=== PATIENT | female | born 1940 ===

== ENCOUNTER 2019-10-30 06:00 | Emergency (ER) | payer MEDICARE ==
--- NOTE | 2019-10-30 07:23 | ED ---
Head Injury - HPI Summary HPI Summary: This patient is a 79-year-old female with no past significant medical history presenting to the ED with a head injury. Patient states when she was getting out of bed this morning, she fell and hit the right side of her head. She denies any headache. Patient is not on blood thinners. She denies any symptoms. Denies LOC. States she feels otherwise well. She denies any dizziness or lightheadedness prior to the fall. She also states she did not trip and she recalls the entire event. She was able to stand herself up. She told staff who called EMS to transport her here for laceration repair. There is a laceration which is irregular in shape approximately 2 cm above the right eyebrow. Minimal blood loss. Patient is alert and oriented to person place and time. - History Of Current Complaint Chief Complaint: EDFall Stated Complaint: FALL PER PT Time Seen by Provider: 10/30/19 06:32 Hx Obtained From: Patient Mechanism Of Injury: Blunt Trauma Onset/Duration: Started Hours Ago Onset of Pain: Minutes Severity Currently: None Pain Intensity: 0 Pain Scale Used: 0-10 Numeric - Allergies/Home Medications Allergies/Adverse Reactions: Allergies Allergy/AdvReac Type Severity Reaction Status Date / Time Penicillins Allergy Unknown Verified 10/30/19 06:12 Reaction Details Tetracyclines Allergy Unknown Verified 10/30/19 06:12 Reaction Details Home Medications: Home Medications Acetaminophen [Pain Relief] 1,000 mg PO Q8HR PRN 10/30/19 [History Confirmed ] Fluticasone Propionate [[place] Respiclick] 50 mcg BOTH NARES DAILY 10/30/19 [ History Confirmed 10/30/19] Loperamide HCl [Imodium A-D] 2 mg PO DAILY 10/30/19 [History Confirmed 10/30/19] Oxybutynin Chloride [Oxybutynin Chloride ER] 10 mg PO DAILY 10/30/19 [History Confirmed 10/30/19] amLODIPine TAB* [Norvasc 5 mg TAB*] 10 mg PO DAILY 10/30/19 [History Confirmed 10/30/19] PMH/Surg Hx/FS Hx/Imm Hx Previously Healthy: Yes - Immunization History Hx Pertussis Vaccination: No Immunizations Up to Date: Yes Infectious Disease History: No Infectious Disease History: Denies: Traveled Outside the [place] in Last 30 Days - Social History Occupation: Unemployed Lives: [facility] Alcohol Use: None Hx Substance Use: No Substance Use Type: Reports: None Hx Tobacco Use: No Smoking Status (MU): Never Smoked Tobacco Review of Systems Negative: Fever, Chills, Fatigue, Skin Diaphoresis Negative: Palpitations, Chest Pain Negative: Shortness Of Breath, Cough Positive: Other - laceration 2cm above R eyebrow. Negative: Rash, Bruising Neurological/Mental Status: Negative Negative: Headache, Weakness, Paresthesia, Numbness, Syncope All Other Systems Reviewed And Are Negative: Yes Physical Exam Triage Information Reviewed: Yes Vital Signs On Initial Exam: Initial Vitals Temp Pulse Resp BP Pulse Ox 96.4 F 56 14 166/79 98 10/30/19 06:05 10/30/19 06:05 10/30/19 06:05 10/30/19 06:05 10/30/19 06:05 Vital Signs Reviewed: Yes Appearance: Positive: Well-Appearing, Signs of Trauma Skin: Positive: Warm, Skin Color Reflects Adequate Perfusion, Other - laceration 2cm irregular above R eyebrow, minimal blood loss Head/Face: Positive: Normal Head/Face Inspection Eyes: Positive: EOMI, ZAHRA, Conjunctiva Clear Neck: Positive: Supple, No Lymphadenopathy Respiratory/Lung Sounds: Positive: Clear to Auscultation, Breath Sounds Present Cardiovascular: Positive: RRR, Pulses are Symmetrical in both Upper and Lower Extremities Musculoskeletal: Positive: Normal, Strength/ROM Intact Neurological: Positive: Speech Normal Psychiatric: Positive: Normal, Affect/Mood Appropriate AVPU Assessment: Alert Procedures - Sedation Patient Received Moderate/Deep Sedation with Procedure: No - Laceration/Wound Repair 1 Location: face Description: Irregular Anesthesia: Local, 1.0% Length, Depth and Shape: 2cm, irregular, superifical Betadine Prep?: No Irrigated w/ Saline (ccs): 60 Laceration/Wound Explored: clean Closure: Single Layer Suture Type: Prolene Number of Sutures: 6 Layer Closure?: No Sterile Dressing Applied?: No Diagnostics - Vital Signs Vital Signs Temp Pulse Resp BP Pulse Ox 10/30/19 06:24 59 97 10/30/19 06:06 56 166/79 97 10/30/19 06:05 96.4 F 56 14 166/79 98 - Laboratory Lab Statement: Any lab studies that have been ordered have been reviewed, and results considered in the medical decision making process. Head Injury Course/Dx Course Of Treatment: Laceration repair above the right eyebrow. See procedure note. Which has no acute abnormalities. Patient is alert and oriented to person, place and time. No evidence of dementia. Patient states she is otherwise healthy, takes no medications. Denies any blood thinners. Lungs CTA. RRR. Patient appears otherwise stable, no other bruises or signs of trauma noted. PT discharged home in good condition. Suture removal in 5 days. - Diagnoses Differential Diagnosis/HQI/PQRI: Contusion, Other - laceration Provider Diagnoses: Laceration, Head injury, Fall - Critical Care Time Critical Care Statement: Critical care time is provided exclusive of any time spent performing procedures. Discharge ED - Sign-Out/Discharge Documenting (check all that apply): Patient Departure - Discharge Plan Condition: Good Disposition: HOME Patient Education Materials: Care For Your Stitches (ED) Referrals: No Primary Care Phys,NOPCP [Primary Care Provider] - Additional Instructions: Suture removal in 5 days May remove bandage later today - Billing Disposition and Condition Condition: GOOD Disposition: Home
[2019-10-30 09:25] VITALS: BP 124/106
== END 2019-10-30 09:31 | disposition home or self-care (01) ==
LOC: ED 06:00
DX: S09.90XA Unspecified injury of head, initial encounter (principal); S01.111A Laceration without foreign body of right eyelid and periocular area, initial encounter; W06.XXXA Fall from bed, initial encounter; Y92.9 Unspecified place or not applicable; Z88.0 Allergy status to penicillin; Z88.8 Allergy status to other drugs, medicaments and biological substances; Z79.899 Other long term (current) drug therapy
CPT/HCPCS: 12011; 70450; 99283

== ENCOUNTER 2019-12-20 20:09 | Inpatient (IN) ==
[2019-12-20] MEDS ORDERED: Ondansetron 4 mg VIAL 2 MG/ML 2 ml VIAL IV PRN (22:34)
[2019-12-20 22:48] LABS: ABS Lymphocytes 0.8 10^3/ul (1.0-4.8); ABS Monocytes 0.5 10^3/ul (0-0.8); Hematocrit 39 % (35-47); Hemoglobin 13.5 g/dL (12.0-16.0); Lymphocyte % 13.8 %; Mean Corpuscular HGB Conc 35 g/dL (31-36); Mean Corpuscular Hemoglobin 35 pg (27-31); Mean Corpuscular Volume 101 fL (80-97); Mean Platelet Volume 7.3 fL (7.4-10.4); Platelet Count 160 10^3/uL (150-450); Red Blood Count 3.82 10^6 /uL (3.70-4.87); Red Cell Distribution Width 12 % (10-15); White Blood Count 5.8 10^3/uL (3.5-10.8)
[2019-12-20 23:05] LABS: EGFR African American 112.4 (>60); EGFR Non-African American 92.9 (>60); Potassium 4.5 mmol/L (3.5-5.0)
[2019-12-21] MEDS: Heparin 5000 UNITS/ML VIAL(*) 1 ml vial SUBCUT SCH ×2 (06:02→13:43)
[2019-12-21] MEDS ORDERED: Lactated Ringers 500 ml BAG 500 ML IV SCH (10:00)
[2019-12-21] MEDS ORDERED: Morphine PF AMP (0.5MG/ML) 5 MG/10 ML AMP ONE (13:23)
[2019-12-21] MEDS ORDERED: Lidocaine 2% PF 5 ML VIAL ONE (13:24)
[2019-12-21] MEDS ORDERED: Clindamycin 900 MG/D5W BAG(*) 900 MG/50 ML BAG IVPB ONE (14:18)
[2019-12-21] MEDS ORDERED: Ondansetron 4 mg VIAL 2 MG/ML 2 ml VIAL IV PRN (16:03)
[2019-12-21] MEDS ORDERED: Lactated Ringers 1000 ml BAG 500 ML IV SCH (19:00)
[2019-12-21] MEDS: Lactated Ringers 1000 ml BAG 1,000 ML IV SCH (20:45)
[2019-12-21] MEDS: Clindamycin 600 MG/D5W BAG(*) 600 MG/50 ML BAG IV SCH (23:01)
[2019-12-22] MEDS: Lactated Ringers 1000 ml BAG 1,000 ML IV SCH ×2 (04:05→17:18)
[2019-12-22 06:15] LABS: Urine Appearance Clear; Urine Bilirubin Negative (Negative); Urine Blood Negative (Negative); Urine Color Yellow; Urine Glucose Negative (Negative); Urine Ketones Negative (Negative); Urine Nitrite Negative (Negative); Urine Protein Negative (Negative); Urine Specific Gravity 1.009 (1.010-1.030); Urine Urobilinogen Negative (Negative)
[2019-12-22] MEDS: Clindamycin 600 MG/D5W BAG(*) 600 MG/50 ML BAG IV SCH ×3 (06:15→22:33)
[2019-12-22] MEDS ORDERED: Naloxone 0.4 mg VIAL 0.4 mg/ml 1 ml VIAL IV PRN (08:02)
[2019-12-22 09:00] LABS: ABS Lymphocytes 0.7 10^3/ul (1.0-4.8); ABS Monocytes 0.9 10^3/ul (0-0.8); Eosinophil % 0.1 %; Hematocrit 29 % (35-47); Lymphocyte % 12.2 %; Mean Corpuscular HGB Conc 35 g/dL (31-36); Mean Corpuscular Hemoglobin 35 pg (27-31); Mean Corpuscular Volume 101 fL (80-97); Mean Platelet Volume 7.3 fL (7.4-10.4); Platelet Count 137 10^3/uL (150-450); Red Blood Count 2.86 10^6 /uL (3.70-4.87); Red Cell Distribution Width 12 % (10-15); White Blood Count 5.7 10^3/uL (3.5-10.8)
[2019-12-22] MEDS: Enoxaparin 30 MG/0.3 ML SYR(*) SUBCUT SCH (09:07)
[2019-12-22] MEDS: oxyCODONE/Acetamin 5/325 mg TAB PO PRN (22:33)
[2019-12-22] MEDS: Magnesium Hydroxide LIQ 30 ML UDC PO PRN (22:35)
[2019-12-23] MEDS: Clindamycin 600 MG/D5W BAG(*) 600 MG/50 ML BAG IV SCH ×2 (06:00→13:57)
[2019-12-23 06:15] LABS: Hematocrit 25 % (35-47); Hemoglobin 8.8 g/dL (12.0-16.0)
[2019-12-23] MEDS: Lactated Ringers 1000 ml BAG 1,000 ML IV SCH (07:41)
[2019-12-23] MEDS: Enoxaparin 30 MG/0.3 ML SYR(*) SUBCUT SCH (08:52)
[2019-12-23] MEDS: oxyCODONE/Acetamin 5/325 mg TAB PO PRN (09:40)
[2019-12-23] MEDS ORDERED: Lactated Ringers 1000 ml BAG 1,000 ML IV SCH (14:00)
[2019-12-24] MEDS: Enoxaparin 30 MG/0.3 ML SYR(*) SUBCUT SCH (10:08)
[2019-12-24] MEDS: Magnesium Hydroxide LIQ 30 ML UDC PO PRN (10:48)
[2019-12-24 15:11] VITALS: BP 105/47
== END 2019-12-24 16:00 | DRG 481 ==
LOC: ED 20:09 → SSU 23:27
PROVIDERS: ADMIT Internal Medicine; ATTEND Internal Medicine